=== PATIENT | male | born 1995 | race Hispanic/Latino ===

== ENCOUNTER 2019-06-22 08:25 | Outpatient (CLI) | payer OTHER ==
--- NOTE | 2019-06-22 08:43 | RAD ---
EXAM: 2 views of the abdomen HISTORY: Generalized abdominal pain COMPARISON: None FINDINGS: 2 views of the abdomen shows a nonspecific, nonobstructive bowel gas pattern. No free air o r air-fluid levels are seen on upright examination. No suspicious calcifications are seen. The bones are unremarkable. IMPRESSION: No evidence of bowel obstruction.
== END 2019-06-22 08:26 | disposition home or self-care (01) ==
LOC: BICRAD 08:25
PROVIDERS: ATTEND Family Medicine
DX: R10.84 Generalized abdominal pain (principal)
CPT/HCPCS: 74019